=== PATIENT | female | born 1940 | race Caucasian/White ===

== ENCOUNTER → 2017-05-18 13:46 | Outpatient (CLI) | payer MEDICARE, OTHER ==
[~2017-05-18 13:46] MED LIST: BAYER CHEWABLE81 MG PO; BETAPACE 80 MG80 MG PO; CALTRATE 600 M600 M1; CATAPRES0.1 MG PO; COUMADIN1 MG; EFFIENT10 MG PO; HYZAAR 100-12.51 TAB PO; METOPROLOL TART50 MG PO; PLAVIX75 MG PO; PREDNISONE1 MG PO; PRILOSEC20 MG PO; VITAMIN D2000 UNIT
== END | disposition home or self-care (01) ==
LOC: D.MRI 13:46
DX: G45.9 Transient cerebral ischemic attack, unspecified (principal)

== ENCOUNTER 2017-06-14 09:57 | Outpatient (CLI) | payer MEDICARE, OTHER ==
[~2017-06-14] VITALS: Ht 180.3 cm; Wt 98.2 kg
--- NOTE | ~2017-06-14 | HEMODYNAMI ---
PATIENT:SHOBHA FONG MEDICAL RECORD: [id number] : 42 LOCATION:[facility] ADMISSION DATE: 06/14/17 Generatedon:06/14/201712:34 Patient name: SHOBHA FONG Patient #: [id number] SSN: DO B: 1940 Date of study: 06/14/2017 Page: Of Hemodynamic Procedure Report Patient Data Patient Demographics Procedure consent was obtained First Name: SHOBHA Gender: Female Last Name: HETAL : 1940 Middle Initial: R Age: 77 year(s) Patient #: [id number] Race: Unknown Additional ID: [id number] Contact details Address: [address] [place] [address] State: [place] City: [place] Zip code: [address] Past Medical History Allergies Allergen Reaction Date Comments Reported Penicillins 06/14/2017 Iodine 06/14/2017 Sulfa drugs 06/14/2017 Admission Admission Data Admission Date: 06/14/2017 Admission Time: 9:57 Height (in.): 71 BSA: 2.18 (m2) Height (cm.): 180.34 BMI: 30.13 (kg/m2) Weight (lbs.): 216 Weight (kg.): 97.98 Lab Results Lab Result Date: 06/14/2017 Lab Result Time: 0:00 Biochemistry Name Units Result Min Max CK-MB ng/ml 0.3 --(*---)-- 0 3.6 Creatinine mg/dl 0.9 --(-*--)-- 0.6 1.3 Creatinine l 38 --(*---)-- 21 215 Kinase Troponin l ng/ml 0.017 --(-*--)-- 0 0.06 CBC Name Units Result Min Max Hemoglobin g/dl 14.1 --(*---)-- 13.5 17.5 Procedure Procedure Types Cath Procedure Diagnostic Procedure [facility] w/Coronaries FFR/IVUS Intra-Coronary IVUS Initial PCI Procedure Coronary Stent Initial Miscellaneous Procedures Moderate Sedation up to 30 minutes Procedure Description Procedure Date Procedure Date: 06/14/2017 Procedure Start Time: 12:05 Procedure End Time: 12:33 Procedure Staff Name Function Navdeep Vazquez MD Performing Physician Cornell Estrada RT Scrub Bernabe Hickman RN Nurse Bobbi Corrales RT Monitor Procedure Data Cath Procedure Fluoroscopy Diagnostic fluoroscopy Total fluoroscopy Time: 4.6 time: 4.6 min min Diagnostic fluoroscopy Total fluoroscopy dose: dose: 1144 mGy 1144 mGy Contrast Material Contrast Material Type Amount (ml) Isovue 300 101 Entry Location Entry Primary Successful Side Size Upsize Upsize Entry Closure Flores ccessful Closure Location (Fr) 1 (Fr) 2 (Fr) Remarks Device Remarks Radial Right 6 Fr Mechanical artery Short Compression Estimated blood loss: 10 ml Diagnostic catheters Device Type Used For End Catheter Placement Diagnostic Terumo 5Fr LV Angiography [place] 110cm catheter Diagnostic Terumo 5Fr Left Coronary [place] 110cm catheter Angiography Diagnostic Terumo 5Fr Right Coronary [place] 110cm catheter Angiography Procedure Complications No complications Procedure Medications Medication Administration Route Dosage Oxygen NC 2 l/min Heparin Flush Bag added to field 2 bags (1000units/500ml NS) 0.9% NaCl I.V. 100 ml/hr Radial Cocktail added to field 1 syringe (Verapomil 2mg/Nitro 400mcg/Heparin 1500units) Fentanyl I.V. 50 mcg Versed I.V. 1 mg Fentanyl I.V. 50 mcg Versed I.V. 1 mg Radial Cocktail I.A. 1 syringe (Verapomil 2mg/Nitro 400mcg/Heparin 1500units) Heparin Bolus I.V. 4000 units Integrilin (Bolus I.V. 9 ml 2mg/ml) Integrilin (Bolus wasted 1 ml 2mg/ml) Plavix P.O. 600 mg Hemodynamics Rest BSA: 2.18 (m2) HGB: 14.1 (g/dl) O2 Consumption: Estimated: 185.85 (ml/min) O2 Co nsumption indexed: Estimated:85.25 (ml/min/m) Heart Rate: 55 (bpm) Snapshots Pre Cath Intra NCS Post Cath Vital Signs Time Heart Resp SPO2 NIBP (mmHg) Rhythm Pain Sedation Rate (ipm) (%) Status Level (bpm) 11:52:05 57 28 97 185/83(139) NSR 0 (11) 10(A) , No pain 11:56:37 55 17 97 186/77(151) NSR 0 (11) 10(A) , No pain 12:01:02 56 17 95 173/77(138) NSR 0 (11) 10(A) , No pain 12:05:28 54 18 94 153/76(127) NSR 0 (11) 9(A) , No pain 12:09:44 56 19 91 123/61(95) NSR 0 (11) 9(A) , No pain 12:14:00 57 19 93 135/67(107) NSR 0 (11) 9(A) , No pain 12:18:20 57 18 96 139/71(114) NSR 0 (11) 9(A) , No pain 12:22:42 58 18 97 142/65(121) NSR 0 (11) 9(A) , No pain 12:27:05 56 17 98 145/73(126) NSR 0 (11) 9(A) , No pain 12:31:27 57 18 98 163/75(129) NSR 0 (11) 9(A) , No pain Medications Time Medication Route Dose Verified Delivered Reason Note s Effectiveness by by 11:53:50 Oxygen NC 2 l/min Bernabe Kidd Per physician Vick Hickman RN RN 11:54:47 Heparin Flush added 2 bags Bernabe Kidd used for Bag to Vick Hickman hand tire trimmer (1000units/500ml field RN NS) 11:54:57 0.9% NaCl I.V. 100 Bernabe Kidd Per physician ml/hr Vick Hickman RN RN 11:55:11 Radial Cocktail added 1 Bernabe Bernabe used for (Verapomil to syringe Vick Hickman hand tire trimmer 2mg/Nitro field RN 400mcg/Heparin 1500units) 12:01:26 Fentanyl I.V. 50 mcg Bernabe Bernabe for sedation Vick Hickman RN RN 12:01:33 Versed I.V. 1 mg Bernabe Bernabe for sedation Vick Hickman RN RN 12:05:54 Fentanyl I.V. 50 mcg Bernabe Bernabe for sedation Vick Hickman RN RN 12:06:02 Versed I.V. 1 mg Bernabe Bernabe for sedation Vick Hickman RN RN 12:07:35 Radial Cocktail I.A. 1 Bernabe Sethi for (Verapomil syringe Vick Vazquez MD vasodilation 2mg/Nitro RN 400mcg/Heparin 1500units) 12:19:43 Heparin Bolus I.V. 4000 Bernabe Kidd for units Vick Hickman RN anticoagulation RN 12:19:53 Integrilin I.V. 9 ml Bernabe Kidd for (Bolus 2mg/ml) Vick Hickman RN antiplatelet RN therapy 12:20:02 Integrilin wasted 1 ml Bernabe Kidd for (Bolus 2mg/ml) Vick Hickman RN antiplatelet RN therapy 12:33:34 Plavix P.O. 600 mg Bernabe Kidd for Vick Hickman RN antiplatelet RN therapy Procedure Log Time Note 11:30:40 Bernabe Hickman RN sent for patient. Start room use. 11:34:16 Informed consent obtained and on chart 11:34:36 Diagnostic Cath status Elective 11:34:41 Time tracking: Regular hours 11:34:44 Plan of Care:Hemodynamics will remain stable., Cardiac rhythm will remain stable., Comfort level will be maintained., Respiratory function will remain adequate., Patient/ family verbilizes understanding of procedure., Procedure tolerated without complication., Recovers from procedure without complications.. 11:40:23 Lab Result : Creatinine 0.9 mg/dl 11:40:23 Lab Result : Troponin l 0.017 ng/ml 11:40:23 Lab Result : Hemoglobin 14.1 g/dl 11:40:23 Lab Result : CK-MB 0.3 ng/ml 11:40:23 Lab Result : Creatinine Kinase 38 l 11:40:37 Patient Height : 180.34 cm 11:40:46 Patient Weight : 97.98 kg 11:42:17 Patient received from Pre/Post Procedure Room to CCL 2 Alert and oriented. Tansferred to table in Supine position. 11:42:18 Warm blankets applied, and cesario hugger turned on for patient comfort. 11:42:18 Correct patient and procedure confirmed by team. 11:42:18 ECG and BP/O2 sat monitors applied to patient. 11:42:20 Full Disclosure recording started 11:49:37 Vital chart was started 11:53:50 Oxygen 2 l/min NC was administered by Bernabe Hickman RN; Per physician; 11:54:47 Heparin Flush Bag (1000units/500ml NS) 2 bags added to field was administered by Bernabe Hickman RN; used for procedure; 11:54:57 0.9% NaCl 100 ml/hr I.V. was administered by Bernabe Hickman RN; Per physician; 11:55:11 Radial Cocktail (Verapomil 2mg/Nitro 400mcg/Heparin 1500units) 1 syringe added to field was administered by Bernabe Hickman RN; used for procedure; 11:57:13 Baseline sample Acquired. 11:57:15 Pre-procedure instructions explained to patient. 11:57:54 Rhythm: sinus bradycardia 11:58:05 H&P Date Dictated: 06/09/2017 Within 30 days and on chart., H&P Addendum completed by physician on day of procedure. (MUST COMPLETE FOR ALL OUTPATIENTS). 11:58:07 Pre-op teaching completed and patient verbalized understanding. 11:58:08 Family in waiting room. 11:58:11 Patient NPO since Midnight. 11:58:22 Patient allergic to Penicillins 11:58:27 Patient allergic to Iodine 11:58:32 Patient allergic to Sulfa drugs 11:58:35 Is the patient allergic to Iodine/contrast media? Yes. 11:58:35 Was the patient premedicated? Yes 11:58:37 Is patient on blood thinner?Yes 11:58:50 ACC The patient was administered the following blood thiners within the last 24 hours: None 11:58:53 Patient diabetic? No. 11:58:56 Previous problem with sedation/anesthesia? No ? 11:58:57 Snore? Yes 11:58:58 Sleep apnea? No 11:58:59 Deviated septum? No 11:59:00 Opens mouth fully? Yes 11:59:00 Sticks out tongue? Yes 11:59:02 Airway obstruction? No ? 11:59:08 Dentures? No ? 12:00:29 Pre procedure: right dorsailis pedis pulse 2+ Normal; easily identifiable; not easily obliterated 12:00:31 Modified Favian's test Ulnar < 7 seconds 12:00:33 Patient pain scale 0/10 ?. 12:00:38 IV patent on arrival in left hand with 0.9% NaCl at [facility]. 12:00:41 Lab results completed and on chart. 12:00:44 Right Radial & Right Groin area was prepped with chlora-prep and draped in sterile fashion 12:00:46 Alarms reviewed by R. N. 12:00:47 Sharps counted by scrub and verified by R.N. 12:00:50 Use device set Radial Dx 12:00:51 Acist Syringe opened to sterile field. 12:00:51 Medline Cath Pack opened to sterile field. 12:00:52 Bag Decanter opened to sterile field. 12:00:52 Terumo 6Fr Slender Glidesheath opened to sterile field. 12:00:52 St Eric 260cm J .035 wire opened to sterile field. 12:00:53 Acist Hand Control opened to sterile field. 12:00:53 Acist Manifold opened to sterile field. 12:00:53 Tegaderm 4 x 4 opened to sterile field. 12:00:54 MBrace Wrist Support opened to sterile field. 12:01:01 Final Timeout: patient, procedure, and site verified with staff and physician. All members of the team are in agreement. 12:01:04 Right Radial site verified by team. 12:01:06 Physical assessment completed. ASA score P 2 - A patient with mild systemic disease as per Navdeep Vazquez MD. 12:01:09 Sedation plan: IV Moderate Sedation Versed, Fentanyl 12::26 Fentanyl 50 mcg I.V. was administered by Bernabe Hickman RN; for sedation; 12:01:33 Versed 1 mg I.V. was administered by Bernabe Hickman RN; for sedation; 12:05:10 Procedure started. 12:05:17 Zero performed for pressure channel P1 12:05:26 Local anesthetic to right radial artery with Lidocaine 2% by Navdeep Vazquez MD.INITIAL ACCESS ONLY 12:05:54 Fentanyl 50 mcg I.V. was administered by Bernabe Hickman RN; for sedation; 12:06:02 Versed 1 mg I.V. was administered by Bernabe Hickman RN; for sedation; 12:06:26 A 6 Fr Short sheath was inserted into the Right Radial artery 12:07:35 Radial Cocktail (Verapomil 2mg/Nitro 400mcg/Heparin 1500units) 1 syringe I.A. was administered by Navdeep Vazquez MD; for vasodilation; 12:07:38 A Diagnostic Terumo 5Fr [place] 110cm catheter was advanced over the wire and used for LV Angiography. 12:08:20 LV gram done using OSBORNE 12:08:24 EF : 55 % 12:08:26 Injector settings: Ml/sec: 5, Volume: 15, 12:08:34 A Diagnostic Terumo 5Fr [place] 110cm catheter was advanced over the wire and used for Left Coronary Angiography. 12:10:14 A Diagnostic Terumo 5Fr [place] 110cm catheter was advanced over the wire and used for Right Coronary Angiography. 12:11:34 Catheter removed. 12:11:46 [place] IVUS Catheter opened to sterile field. 12:11:47 [employer]ent[employer] Technologies BasixCompak Inflation Kit opened to sterile field. 12:11:47 Pimentel Whisper J 300cm 0.014 guide wire opened to sterile field. 12:12:30 GUIDE Terumo 6Fr [place] 4.0 guide catheter opened to sterile field. 12:13:08 6 Fr [place] 4.0 guide catheter was inserted over the wire 12:13:17 Whisper wire advanced. 12:14:45 IVUS catheter advanced over wire. 12:15:17 IVUS pass to RCA lesion performed. 12:18:54 IVUS catheter removed over wire. 12:19:43 Heparin Bolus 4000 units I.V. was administered by Bernabe Hickman RN; for anticoagulation; 12:19:53 Integrilin (Bolus 2mg/ml) 9 ml I.V. was administered by Bernabe Hickman RN; for antiplatelet therapy; 12:20:02 Integrilin (Bolus 2mg/ml) 1 ml wasted was administered by Bernabe Hickman RN; for antiplatelet therapy; 12:20:48 Inflation Number: 1 A Biofreedom 4.0 X 8 stent (No Cost Implant) was prepped and advanced across the Prox RCA. The stent was deployed at 15 DMITRIY for 0:11 (min:sec). 12:21:04 Stent catheter was removed intact over wire. 12:21:04 Wire removed. 12:21:05 Guide catheter removed. 12:21:18 Sheath removed intact; hemostasis achieved with Mechanical Compression to the Right Radial artery. 12:21:19 Procedure ended.(Physican Out) 12:21:37 Terumo TR Band Standard opened to sterile field. 12:21:43 Fluoroscopy time 04.60 minutes. 12:21:48 Flurop Dose total: 1144 12::48 Fluoroscopy dose: 1144 mGy 12::56 Contrast amount:Isovue 300 101ml. 12::57 Sharps counted by scrub and verified by R.N. 12:21:59 TR band inflated with 12cc of air. 12:22:00 Insertion/operative site no bleeding no hematoma. 12:22:05 Post right radial artery:stable, clean and dry 12:22:06 Post Procedure Pulses reassessed and unchanged 12:22:08 Post-procedure physical assessment completed. ASA score P 2 - A patient with mild systemic disease as per Navdeep Vazquez MD. 12:22:10 Post procedure rhythm: unchanged. 12:22:12 Estimated blood loss: 10 ml 12:22:13 Post procedure instruction explained to patient.Patient verbalizes understanding. 12:22:13 Patient needs reinforcement of post procedure teaching. 12:22:28 Procedure type changed to Cath procedure, Diagnostic procedure, LHC, LHC w/Coronaries, FFR/IVUS, Intra-Coronary IVUS Initial, PCI procedure, Coronary Stent Initial, Miscellaneous Procedures, Moderate Sedation up to 30 minutes 12::34 Procedure Complication : No complications 12:22:36 See physician's report for complete and final results. 12:25:17 Procedure and supply charges have been captured, reviewed, submitted and are correct. 12:33:34 Plavix 600 mg P.O. was administered by Bernabe Hickman RN; for antiplatelet therapy; 12:33:40 Vital chart was stopped 12:33:43 Report given to Pre/Post Procedure Room. 12:33:46 Patient transfered to Pre/Post Procedure Room with Stretcher. 12:33:49 Procedure ended. 12:33:49 Full Disclosure recording stopped 12:33:53 End room use (Document Last) Intervention Summary Intervention Notes Time ActionType Lesion and Equipment Action# Pressure Duration Attributes Used 12:20:[address] stent Prox RCA Biofreedom 1 15 00:11 4.0 X 8 stent (No Cost Implant) Device Usage Item Name Manufacture Quantity Catalog Hospital Part Current Minimal Lot# / Number Charge Number Stock Stock Serial# Code Acist Acist 1 64714 [id number] 458272 905643 20 [employer] Medline Cardinal 1 [id number] 696362 88696 132591 5 Cath Pack Health Bag Microtek 1 2002S 522909 67778 240994 5 S[employer] Terumo 6Fr Terumo 1 [id number] 821536 447931 778734 [address] [facility] [address] Eric 1 015379 381390 778902 499007 30 260cm J .035 wire Acist Hand Acist 1 30919 429505 687495 400592 5 Control Medical Systems Inc Acist Acist 1 44385 841771 936646 836487 5 Manifold Medical Systems Inc Tegaderm 4 3M 1 1626W 863800 955675 443152 5 x 4 MBrace Advanced 1 140-0250-00 082735 88956 930661 5 Wrist Vascular Support Dynamics Diagnostic Terumo 1 54-7795 367571 128532 318068 5 Terumo 5Fr [place] 110cm catheter [place] 1 [id number] 062119 845069 374497 8 [place] IVUS Catheter Merit Merit 1 [id number] 079167 313767 225665 15 Basix[employer] [facility] Medical Inflation Kit Pimentel Pimentel 1 [id number] 395273 465473 047267 5 Whisper J Vascular 300cm 0.014 guide wire GUIDE Terumo 1 26-2073 180367 566029 848582 1 Terumo 6Fr [place] 4.0 guide catheter Biofreedom Biosensors 1 [facility]2-4909 423513 977341 5 [id number] 4.0 X 8 Europe SA stent (No Cost Implant) Terumo TR Terumo 1 [id number] 115151 309247 159548 40 Band Standard Signature Audit [place] Stage Time Signature Unsigned Intra-Procedure 06/14/2017 Bobbi 12:34:03 PM Counts RT(R) Signatures Monitor : Bobbi Signature : Counts RT Date : Time : [address] [place] [address]
--- NOTE | ~2017-06-14 | OP ---
PATIENT NAME: SHOBHA FONG MEDICAL RECORD: [id number] :42 LOCATION:D.CAT ADMISSION DATE: SURGEON: DESIRE LOUIS MD OPERATION DATE: 06/14/17 PROCEDURES: 1. Percutaneous transluminal coronary angioplasty stent right coronary artery. 2. Left heart catheterization. 3. Selective coronary angiography. 4. Intravascular ultrasound. 5. Left ventriculogram. INDICATION: 1. Angina. 2. Coronary artery disease. PROCEDURE IN DETAIL: After informed consent was obtained and after detailed explanation of risks, benefits, as well as alternative therapies, the patient elected to proceed with angiogram and angioplasty. The right radial area was prepped and draped in a normal sterile fashion. The right radial artery was cannulated via modified Seldinger technique with placement of 6-Wolof sheath. All catheters exchanged through this sheath. FINDINGS: Left ventriculogram was performed in standard 30 degree OSBORNE view, reveals good cardiac wall motion throughout all segments. Overall ejection fraction estimated at 60%. SELECTIVE CORONARY ANGIOGRAPHY: 1. Left main is with no significant angiographic disease. 2. Left anterior descending has mild irregularities but no flow-limiting stenosis. 3. The left circumflex has mild irregularities but no flow-limiting stenosis. 4. The right coronary artery has 75% stenosis at the ostium confirmed by intravascular ultrasound. Previously placed stent in the distal right coronary artery is widely patent. There is no disease elsewise at the right coronary artery or its branches. This is a 6 millimeter lesion in a 4.0 millimeter vessel with MARCOS 3 flow before and after the intervention. PTCA STENT OF THE RIGHT CORONARY ARTERY: The stent used was a 4.0 X 8 millimeter BioFreedom taken to 15 atmospheres. The result was 0% residual stenosis. OVERALL IMPRESSION: Successful percutaneous transluminal coronary angioplasty stent of the right coronary artery going from 75% initial stenosis to 0% residual stenosis. DESIRE LOUIS MD CC: [id number] DICTATION DATE: 06/14/17 1200 BAR STAFF: DM 06/15/17 0921 DEP CLI 06/14/17 [facility] [address] [place] [address]
[2017-06-14] MEDS ORDERED: ZOLOFT25 MG PO (10:30)
[2017-06-14] MEDS ORDERED: CATAPRES0.1 MG PO (10:30)
[2017-06-14 10:32] VITALS: BP 158/59; Ht 180.3 cm; Wt 98.2 kg
[2017-06-14 10:53] LABS: BASOPHILS 0 % (0-2); EOSINOPHILS 0 % (0-7); HEMATOCRIT 39.9 % (36.0-48.0); HEMOGLOBIN 14.1 g/dL (12-16); IMMATURE GRANULOCYTES 0.4 % (0-5); LYMPHOCYTES 8.9 % (15-50); MCH 32.6 pg (26.0-34.0); MCHC 35.3 g/dL (31.0-37.0); MCV 92.1 fL (80.0-100.0); MEAN PLATELET VOLUME 10.3 fL (7.4-10.4); MONOCYTES 1.5 % (2-11); NEUTROPHILS 89.2 % (40-80); PLATELET COUNT 172 10x3/uL (130-400); RBC 4.33 10x6/uL (4.00-5.40); RDW 12.5 % (11.5-14.5); WBC 5.4 10x3/uL (4.8-10.8)
[2017-06-14 11:04] LABS: INR 1.06 (0.85-1.17); PROTIME 13.6 SECONDS (11.6-15.0)
[2017-06-14 11:09] LABS: ANION GAP 16.8 mmol/L (8-16); CALCIUM 9.6 mg/dL (8.5-10.1); CARBON DIOXIDE 22.5 mmol/L (21.0-32.0); CREATININE - SERUM 0.9 mg/dL (0.6-1.3); POTASSIUM - SERUM 4.3 mmol/L (3.5-5.1)
[2017-06-14 11:22] LABS: CKMB 0.3 U/L (0.0-3.6); CREATINE KINASE 38 UL (21-215)
[2017-06-14 11:26] LABS: TROPONIN-I < 0.017 ng/mL (0.000-0.060)
--- NOTE | 2017-06-14 12:50 | NUR ---
1245 RECEIVED PT FROM HOSPITALIST MEDICAL DIRECTOR. PT IS DROWSY, DENIES ANY C/O. TR BAND CDI TO RIGHT WRIST WITH NO BLEEDING OR HEMATOMA NOTED. WRIST IMMOBILIZER IN PLACE. RR EVEN AND UNLABORED ON O2 AT 2LPM VIA NC. CALL LIGHT IN REACH.
--- NOTE | 2017-06-14 12:58 | NUR ---
1255 PT DENIES ANY C/O. TR BAND IS CDI, AREA IS FREE FROM BLEEDING AND HEMATOMA. CAP REFILL TO FINGERS IS BRISK, FINGERS WARM AND PT DENIES ANY NV DEFICIT. VSS, SINUS BRADYCARDIA PER MONITOR. FAMILY AT BEDSIDE, CALL LIGHT IN REACH.
[2017-06-14] MEDS ORDERED: PLAVIX75 MG PO (13:02)
[2017-06-14] MEDS ORDERED: BAYER CHEWABLE81 MG PO (13:03)
--- NOTE | 2017-06-14 13:23 | NUR ---
1320 PT DENIES ANY C/O TR BAND CDI, FINGERS WARM, CAP REFILL IS BRISK RR IS EVEN AND UNLABORED.
--- NOTE | 2017-06-14 13:48 | NUR ---
1345 PT DENIES ANY C/O. RR IS EVEN AND UNLABORED. TR BAND CDI. FINGERS WARM, CAP REFILL IS BRISK. FAMILY AT BEDSIDE. CALL LIGHT IN REACH.
--- NOTE | 2017-06-14 14:14 | NUR ---
1414 POST PROCEDURE EKG DONE. TR BAND CDI. PT DENIES ANY C/O. FAMILY AT BEDSIDE. CALL LIGHT IN REACH.
--- NOTE | 2017-06-14 15:05 | NUR ---
1500 POST PROCEDURE LAB DRAW COMPLETED. CATH SITE FREE FROM BLEEDING OR HEMATOMA. SON AT BEDSIDE. PT DENIES ANY C/O AT THIS TIME.
--- NOTE | 2017-06-14 15:37 | NUR ---
1530 PT HAS AMBULATED TO THE BATHROOM AND VOIDED QS. TR BAND DEFLATION HAS BEGUN, 3 CC OF AIR REMOVED FROM BAND WTIH NO BLEEDING OR HEMATOMA NOTED.
--- NOTE | 2017-06-14 16:41 | NUR ---
1615 ALL AIR OUT OF TR BAND WITH NO BLEEDING OR HEMATOMA NOTED. IV DC'D WITH CATH INTACT. PT DRESSING FOR DC TO HOME. 1630 2X2 AND TEGADERM DRESSING TO CATH SITE WITH NO BLEEDING OR HEMATOMA NOTED. DC INSTRUCTIONS REVIEWED WITH PT AND FAMILY. [facility] CALLED TO [facility] PER PT REQUEST. [facility] BYRON STATES THEY HAVE NO PLAVIX TABLETS, AND IS ON BACKORDER, BUT WILL TRY TO HAVE PLAVIX SENT FROM OTHER PHARMACY TO FILL PRESCRIPTION. INSTRUCTED PT AND FAMILY TO CALL DR LOUIS'S OFFICE IN AM IF PHARMACY IS UNABLE TO FILL PRESCRIPTION AND THEY VERBALIZE UNDERSTANDING. PT ESCORTED TO PRIVATE AUTO VIA WC BY NURSE WTIH SON DRIVING HER HOME.
== END 2017-06-14 16:30 | disposition home or self-care (01) ==
LOC: D.CATH 09:57
PROVIDERS: Internal Medicine Interventional Cardiology
DX: I25.119 Atherosclerotic heart disease of native coronary artery with unspecified angina pectoris (principal); Z00.6 Encounter for examination for normal comparison and control in clinical research program; Z01.812 Encounter for preprocedural laboratory examination
CPT/HCPCS: 93458; 92978; C9600

== ENCOUNTER → 2017-08-11 07:38 | Outpatient (CLI) | payer MEDICARE, OTHER ==
[2017-06-14 10:32] VITALS: BMI 30.2
[~2017-08-11 07:38] MED LIST changes: +ZOLOFT25 MG PO
== END | disposition home or self-care (01) ==
LOC: D.MRI 07:38
DX: M54.5 Low back pain (principal)

== ENCOUNTER → 2019-04-04 10:44 | Outpatient (CLI) | payer MEDICARE, OTHER ==
[2017-06-14 10:32] VITALS: BMI 30.2
--- NOTE | 2019-04-07 16:42 | ST ---
PATIENT:SHOBHA FONG MEDICAL RECORD: [id number] SEX: F LOCATION:[facility] ORDER #: ADMISSION DATE: 04/04/19 AGE OF PATIENT: 78 REFERRING PHYSICIAN: INTERPRETING PHYSICIAN: DESIRE LOUIS MD DATE OF SERVICE: 04/04/2019 PROCEDURE: Nuclear stress test. INDICATIONS: Coronary artery disease, chest pain, shortness of breath, hypertension, hyperlipidemia. She was exercised on standard Lexiscan protocol with 25 mCi of sestamibi injected at peak stress, 9 mCi used previously for rest images. FINDINGS: Gated SPECT reveals preserved ejection fraction at 66% with good wall motion and thickening and brightening throughout all segments. SPECT imaging Cardiolite was used as myocardial fusion agent. There is homogeneous uptake throughout all segments at rest and stress with no evidence of inducible ischemia or previous infarction. OVERALL IMPRESSION: 1. This is a normal nuclear stress test with no evidence of inducible ischemia or previous infarction. 2. Gated SPECT reveals a preserved ejection fraction at 66%. In this patient with ongoing symptomatology, the current scan does not suggest the presence of hemodynamically significant coronary artery disease. Evaluate noncardiac etiology of chest pain. TRANSINT:[id number] Voice Confirmation ID: [id number] DOCUMENT ID: [id number] DESIRE LOUIS MD at 1642 CC: JENY FAIR [id number] DICTATION DATE: 04/05/19 1532 BRUSHER MACHINE: 04/06/19 0413 DEP CLI 04/04/19 [place] [id number] [place] [address]
== END | disposition home or self-care (01) ==
LOC: D.HCCARDIO 10:44
PROVIDERS: ATTEND Internal Medicine Interventional Cardiology
DX: I25.10 Atherosclerotic heart disease of native coronary artery without angina pectoris (principal)

== ENCOUNTER 2019-05-16 09:43 | Outpatient (CLI) | payer MEDICARE, OTHER ==
[~2019-05-16] VITALS: Ht 180.3 cm; Wt 97.7 kg
--- NOTE | ~2019-05-16 | HEMODYNAMI ---
PATIENT:SHOBHA FONG MEDICAL RECORD: [id number] : 42 LOCATION:D.CAT ADMISSION DATE: 05/16/19 Generatedon:05/16/201912:14 Patient name: SHOBHA FONG Patient #: [id number] SSN: DO B: 1940 Date of study: 05/16/2019 Page: Of Hemodynamic Procedure Report Patient Data Patient Demographics Procedure consent was obtained First Name: SHOBHA Gender: Female Last Name: HETAL : 1940 [facility] Initial: R Age: 79 year(s) Patient #: [id number] Race: Unknown Additional ID: [id number] Contact details [address]: [address] [place], [place] [id number] State: [place] City: [place] Zip code: [address] Past Medical History Allergies Allergen Reaction Date Comments Reported Penicillins 06/14/2017 Iodine 06/14/2017 Sulfa drugs 06/14/2017 Admission Admission Data Admission Date: 05/16/2019 Admission Time: 9:43 Arrival Date: 05/16/2019 Arrival Time: 0:00 Admit Source: Other Insurance Payor: Medicare Height (in.): 70.87 BSA: 2.18 (m2) Height (cm.): 180 BMI: 30.25 (kg/m2) Weight (lbs.): 216.05 Weight (kg.): 98 Procedure Procedure Types Cath Procedure Diagnostic Procedure Cardioversion External Procedure Description Procedure Date Procedure Date: 05/16/2019 Procedure Start Time: 12:06 Procedure End Time: 12:13 Procedure Staff Name Function Navdeep Vazquez MD Performing Physician Sofía Morris RN Nurse Nelson Francis CHOCOLATE PRODUCTION MACHINE OPERATOR Additional personnel Elmo Guaman RT Monitor Hemodynamics Rest BSA: 2.18 (m2) O2 Consumption: Estimated: 211.58 (ml/min) O2 Consumption indexed : Estimated:97.06 (ml/min/m) Heart Rate: 88 (bpm) Snapshots Pre Cath Intra NCS Post Cath Vital Signs Time Heart Resp SPO2 etCO2 NIBP (mmHg) Rhythm Pain Sedation Rate (ipm) (%) (mmHg) Status Level (bpm) 12:01:01 71 16 98 0 155/84(124) NSR 0 (11) 10(A) , No pain 12:05:19 76 14 100 30.6 165/96(142) NSR 0 (11) 10(A) , No pain 12:09:52 51 16 100 14.2 119/58(71) NSR 0 (11) 10(A) , No pain Procedure Log Time Note 11:00:43 Diagnostic Cath Status : Elective 11:01:35 Felicia Vera RT(R) sent for patient. Start room use. 11:01:36 Time tracking: Regular hours (M-F 7:00 - 5:00) 11:01:40 Plan of Care:Hemodynamics will remain stable., Cardiac rhythm will remain stable., Comfort level will be maintained., Respiratory function will remain adequate., Patient/ family verbilizes understanding of procedure., Procedure tolerated without complication., Recovers from procedure without complications.. 11:25:25 Admit Source: Other 11:25:31 Patient Weight : 216.05 lbs 11:25:36 Patient Height : 70.87 inches 11:26:25 Insurance Payor : Medicare 11:26:30 Arrival Date: 05/16/2019 12:00:00 AM 11:59:45 Vital chart was started 11:59:59 Patient received from Pre/Post Procedure Room to CCL 2 Alert and oriented. Tansferred to table in Supine position. 12:00:04 Warm blankets applied, and cesario hugger turned on for patient comfort. 12:00:04 Correct patient and procedure confirmed by team. 12:00:07 Signed procedure consent form obtained from patient. 12:00:09 ECG and BP/O2 sat monitors applied to patient. 12:03:46 Baseline sample Acquired. 12:04:00 Rhythm: atrial fibrillation 12:04:05 Full Disclosure recording started 12:04:22 Physician arrived 12:04:23 --------ALL STOP TIME OUT------ 12:04:24 Final Timeout: patient, procedure, and site verified with staff and physician. All members of the team are in agreement. 12:04:35 Bilateral chest site verified by team. 12:04:43 Fire Safety Assessment: C--Open oxygen or nitrous oxide is being used. 12:04:47 Physical assessment completed. ASA score P 2 - A patient with mild systemic disease as per Navdeep Vazquez MD. 12:04:53 Sedation plan: IV Moderate Sedation Medication:Propofol 12:05:10 Navdeep Vazquez MD present and monitoring patient for TIVA. 12:06:04 Nelson Francis CRNA present and monitoring patient for TIVA. 12:06:06 Procedure started. 12:06:08 Quick combo pads placed on patients chest and back. 12:06:19 Defibrillator synced and charged to 275 Joules. 12:06:24 Shock delivered. 12:06:47 Patient cardioverted to sinus bradycardia. 12:07:54 Procedure ended.(Physican Out) 12:09:20 H&P Date Dictated: 05/11/2019 Within 30 days and on chart., H&P Addendum completed by physician on day of procedure. (MUST COMPLETE FOR ALL OUTPATIENTS). 12:10:58 Post-procedure physical assessment completed. ASA score P 2 - A patient with mild systemic disease as per Navdeep Vazquez MD. 12:11:52 Quick Combo opened to sterile field. 12:12:48 Vital chart was stopped 12:12:49 See physician's report for complete and final results. 12:12:51 Report given to Pre/Post Procedure Room. 12:12:57 Patient transfered to Pre/Post Procedure Room with Stretcher. 12:13:00 Procedure ended. 12:13:00 Full Disclosure recording stopped 12:13:03 End room use (Document Last) Device Usage Item Manufacture Quantity Catalog Hospital Part Current Minimal Lot# / Name Number Charge Number [facility] Code XOXO Kitchen 1 [id number] Combo Signature Audit [place] Stage Time Signature Unsigned Intra-Procedure 05/16/2019 Elmo Guaman 12:14:02 PM RT(R) (CV) Signatures Monitor : Elmo Guaman RT Signature : Date : Time : [place] [id number] [place] [address]
[2019-05-16] MEDS ORDERED: FUROSEMIDE20 MG PO (10:19)
[2019-05-16 10:38] VITALS: BP 161/81; Ht 180.3 cm; Wt 97.7 kg
[2019-05-16] MEDS ORDERED: LANOXIN125 MCG PO (10:44)
--- NOTE | 2019-05-16 10:44 | NUR ---
PT WITH AT-RISK SUICIDE RISK SCREENING, SAFETY MEASURES IMPLEMENTED PER PROTOCOL. PT PLACED IN DIRECT OBSERVATION OF NURSE, BEACH LIFEGUARD AND YARN INSPECTOR NOTIFIED.
[2019-05-16 10:49] LABS: BASOPHILS 0 % (0-2); EOSINOPHILS 1.8 % (0-7); HEMATOCRIT 40.2 % (36.0-48.0); HEMOGLOBIN 14.4 g/dL (12-16); LYMPHOCYTES 22.9 % (15-50); MCHC 35.8 g/dL (31.0-37.0); MEAN PLATELET VOLUME 9.8 fL (7.4-10.4); NEUTROPHILS 68.3 % (40-80); RBC 4.37 10x6/uL (4.00-5.40); RDW 13.5 % (11.5-14.5); WBC 3.3 10x3/uL (4.8-10.8)
[2019-05-16 10:53] LABS: PLATELET COUNT 210 10x3/uL (130-400)
[2019-05-16 10:56] LABS: ANION GAP 13.4 mmol/L (8-16); CALCIUM 10.1 mg/dL (8.5-10.1); CARBON DIOXIDE 27.2 mmol/L (21.0-32.0); INR 1.97 (0.85-1.17); POTASSIUM - SERUM 3.6 mmol/L (3.5-5.1); PROTIME 21.8 SECONDS (11.6-15.0)
--- NOTE | 2019-05-16 11:31 | NUR ---
PT NURSE PRESENT IN PT'S ROOM UPON ARRIVAL FOR SUICIDE ASSESSMENT. DR. GREENFIELD NOTIFIED AND REVIEWED PT'S BEHAVIOR AND ASSESSMENT RESULTS. PT IS A LOW RISK PER DR. GREENFIELD. DR. GREENFIELD STATED TO GIVE RESOURCES TO PT AT THIS TIME OF DISCHARGE. NO FURTHER ORDERS AT THIS TIME. RESOURCES REVIEWED WITH PT AND SHE VERBALIZED UNDERSTANDING.
--- NOTE | 2019-05-16 12:15 | NUR ---
RECIEVED TO ROOM VIA STRETCHER FROM METAL MOLDER. PATIENT ALERT AND ORIENTD ON ARRIVAL. CONNECTED TO MONITOR FOR OBSERVATION WITH HR SB 49 CHEST PAIN IS DENIED
--- NOTE | 2019-05-16 12:36 | NUR ---
PATIENT REMAINS IN SB WITH CHEST PAIN DENIED. ALERT AND TALKING TO FAMILY AND FRIENDS
--- NOTE | 2019-05-16 13:00 | NUR ---
REPOSITIONED TO SITTING WITH HOB UP 30 SANDWICH AND SODA TO BEDSIDE
--- NOTE | 2019-05-16 13:24 | NUR ---
VERBAL AND WRITTEN DISCHARGE GONE OVER WITH PATIENT. PIV REMOVED WITH DRESSING APPLIED. PATIENT REAMINS IN SB RATE OF 59 CHEST PAIN IS DENIED. PATIENT UP TO GET DRESSED FOR DISCHARGE HOME
--- NOTE | 2019-05-16 13:25 | NUR ---
LEFT VIA WC TO PARKING FOR PRIVATE TRANSPORTATION HOME NO DISTRESS
--- NOTE | 2019-05-17 11:19 | OP ---
PATIENT NAME: SHOBHA FONG MEDICAL RECORD: [id number] :42 LOCATION:D.CAT ADMISSION DATE: SURGEON: DESIRE LOUIS MD DATE OF OPERATION: 05/16/2019 PROCEDURE: DC cardioversion. INDICATION: Atrial fibrillation. PROCEDURE IN DETAIL: IV conscious sedation was per anesthesia. Continuous heart rate, O2 saturation, blood pressure monitoring all undertaken, all of which remained stable. She received 1 shock at 275 joules restoring sinus rhythm. OVERALL IMPRESSION: Successful DC cardioversion from atrial fibrillation to sinus rhythm. TRANSINT:[id number] Voice Confirmation ID: [id number] DOCUMENT ID: [id number] DESIRE LOUIS MD at 1119 CC: [id number] DICTATION DATE: 05/16/19 1207 ONCOLOGY NAVIGATOR: 05/16/19 1345 DEP CLI 05/16/[address] [address]
== END 2019-05-16 13:26 | disposition home or self-care (01) ==
LOC: D.CATH 09:43
PROVIDERS: ATTEND Internal Medicine Interventional Cardiology
DX: I48.91 Unspecified atrial fibrillation (principal); Z01.812 Encounter for preprocedural laboratory examination

== ENCOUNTER → 2019-06-22 09:20 | Outpatient (CLI) | payer MEDICARE, OTHER ==
[~2019-06-22 09:20] MED LIST changes: +FUROSEMIDE20 MG PO; +LANOXIN125 MCG PO
--- NOTE | 2019-06-23 14:45 | EC ---
PATIENT:SHOBHA FONG DATE OF SERVICE: 06/22/19 SEX: F MEDICAL RECORD: [id number] DATE OF : 42 [facility] AGE OF PATIENT: 79 ADMISSION DATE: 06/22/19 REFERRING PHYSICIAN: INTERPRETING PHYSICIAN: DESIRE VAZQUEZ MD ECHOCARDIOGRAM REPORT ECHO CHARGES 4 ECHO COMPLETE Date: 06/22/19 CLINICAL DIAGNOSIS: A-FIB/SOB/LOVE H/O CAD/HTN ECHOCARDIOGRAPHIC MEASUREMENTS (adult normal given) AC root (d.<3.7cm) 3.0 cm LV Septum d (<1.2 cm> 1.2 cm Valve Excursion 0.6 cm LV Septum (systole) 2.0 cm Left Atria (s.<4.0cm> 5.5 cm LVPW d(<1.2cm) 1.2 cm RV (d.<2.3cm) 2.8 cm LVPW (sytole) 1.8 cm LV diastole(<5.6CM) 6.3 cm MV E-F(>70mm/sec) cm LV systole 3.9 cm LVOT Diameter 2.1 cm MV exc.(>10mm) cm Est.ejection fraction (50-75%) % DOPPLER: LVIT cm/sec A 77.0 cm/sec E 100 cm/sec LA cm/sec RVSP 33.0 mmHg LVOT 113 cm/sec AOP1/2T m/s Asc. Ao 208 cm/sec RVOT 50.0 cm/sec RA cm/sec PA 83.0 cm/sec AV Gradient Peak 17.4 mmHg AV Mean 7.0 mmHg AV Area 1.9 cm MV Gradient Peak 4.2 mmHg MV Mean 0.83 mmHg MV Area cm COMMENTS: OP - HC Real Estate Sales Associate: 1 ALCIRA HEMPHILL Core Laying Machine Operator: 1 Dr. Vazquez TAPE# PACS Pericardial Effusion N DATE OF SERVICE: 06/22/2019 FINDINGS: 1. Left ventricular chamber size is mildly dilated. Left ventricular systolic function is preserved at 55%. 2. Left atrium is significantly dilated at 5.5 cm. Right atrium and right ventricular chamber sizes are as well moderate to severely dilated. 3. Valvular structures: Aortic valve demonstrates mild calcific aortic stenosis. Valve area calculates to 1.9 cm-squared with a gradient of 18 mm across the valve. The remaining valvular structures have normal structure and ECHOCARDIOGRAM REPORT [id number] HETAL,SHOBHA R motion. 4. Doppler interrogation elsewise reveals mild aortic insufficiency, mild mitral regurgitation, mild tricuspid regurgitation. No other valvular insufficiency or stenosis. Pulmonary systolic pressure is estimated at 33 mmHg. 5. No evidence of pericardial effusion or left ventricular thrombus. TRANSINT:[id number] Voice Confirmation ID: [id number] DOCUMENT ID: [id number] DESIRE VAZQUEZ MD at 1445 CC: [id number] DICTATION DATE: 06/23/19 1110 RETAIL SALESWORKER: 06/23/19 1323 DEP CLI 06/22/19 [facility] [address] [place] [address]
== END | disposition home or self-care (01) ==
LOC: D.HCCARDIO 09:20
PROVIDERS: ATTEND Internal Medicine Interventional Cardiology
DX: I48.91 Unspecified atrial fibrillation (principal); R06.00 Dyspnea, unspecified; I10 Essential (primary) hypertension; I25.10 Atherosclerotic heart disease of native coronary artery without angina pectoris

== ENCOUNTER → 2019-11-28 09:49 | Outpatient (CLI) | payer MEDICARE, OTHER ==
[~2019-11-28] VITALS: Ht 180.3 cm; Wt 99.1 kg
--- NOTE | ~2019-11-28 | HEMODYNAMI ---
PATIENT:SHOBHA FONG MEDICAL RECORD: [id number] : 42 [facility] AD[facility]ION DATE: 11/28/19 Generatedon:11/28/201912:26 Patient name: SHOBHA FONG Patient #: [id number] SSN: [id number] : 1940 Date of study: 11/28/2019 Page: Of Hemodynamic Procedure Report Patient Data Patient Demographics Procedure consent was obtained First Name: SHOBHA Gender: Female Last Name: HETAL : 1940 [facility] Initial: R Age: 79 year(s) Patient #: [id number] Race: SSN: [id number] Additional ID: [id number] Contact details Address: [address] [place], [place] [address] State: [place] City: [place] Zip code: [address] Past Medical History Allergies Allergen Reaction Date Comments Reported Penicillins 06/14/2017 Iodine 06/14/2017 Sulfa drugs 06/14/2017 Other allergy 11/28/2019 Iodine, Pcn, Sulfa Admission Admission Data Admission Date: 11/28/2019 Admission Time: 9:49 Arrival Date: 11/28/2019 Arrival Time: 0:00 Admit Source: Other Insurance Payor: Medicare [facility] #: [id number] Height (in.): 71 BSA: 2.19 (m2) Height (cm.): 180.34 BMI: 30.47 (kg/m2) Weight (lbs.): 218.46 Weight (kg.): 99.09 Lab Results Lab Result Date: 11/28/2019 Lab Result Time: 0:00 Biochemistry Name Units Result Min Max BUN mg/dl 17 --(---*)-- 7 18 Creatinine mg/dl 0.9 --(-*--)-- 0.6 1.3 eGFR ml/min 64.81946 *-(----)-- 90 120 NONAFRICAN CBC Name Units Result Min Max Hematocrit % 40.6 -*(----)-- 42 54 Hemoglobin g/dl 14.4 --(*---)-- 13.5 17.5 Procedure Procedure Types Cath Procedure Diagnostic Procedure Cardioversion External Procedure Description Procedure Date Procedure Date: 11/28/2019 Procedure Start Time: 12:20 Procedure End Time: 12:22 Procedure Staff Name Function Navdeep Vazquez MD Performing Physician Pj Trejo RT Monitor Mamta Chavira RN Nurse Arabella Murphy CRNA Additional personnel Wendy Manning RT Monitor Procedure Data Cath Procedure Estimated blood loss: 0 ml Procedure Complications No complications Procedure Medications Medication Administration Route Dosage Oxygen etCO2 Nasal cannula 2 l/min Refer to Anesthesia Notes for Sedation Medications Hemodynamics Rest BSA: 2.19 (m2) HGB: 14.4 (g/dl) O2 Consumption: Estimated: 202.48 (ml/min) O2 Consumption indexed: Estimated:92.46 (ml/min/m) Heart Rate: 76 (bpm) Snapshots Pre Cath Intra NCS Post Cath Vital Signs Time Heart Resp SPO2 etCO2 NIBP (mmHg) Rhythm Pain Sedation Rate (ipm) (%) (mmHg) Status Level (bpm) 12:10:17 76 12 99 0 180/101(154) NSR 0 (11) 10(A) , No pain 12:15:37 79 17 99 20.3 191/95(114) NSR 0 (11) 10(A) , No pain 12:20:05 78 7 99 0 169/84(113) NSR 0 (11) 10(A) , No pain Medications Time Medication Route Dose Verified Delivered Reason Notes Effective ness by by 12:17:02 Oxygen etCO2 2 Navdeep Oleary used for Nasal l/min George Chavira RN procedure cannula 12:17:09 Refer to Navdeep Oleary Anesthesia George Chavira RN Notes for Sedation Medications Procedure Log Time Note 11:58:21 Informed consent obtained and on chart 11:58:58 Pj SHEFFIELD(R) sent for patient. Start room use. 12:02:00 Time tracking: Regular hours (M-F 7:00 - 5:00) 12:02:06 Plan of Care:Hemodynamics will remain stable., Cardiac rhythm will remain stable., Comfort level will be maintained., Respiratory function will remain adequate., Patient/ family verbilizes understanding of procedure., Procedure tolerated without complication., Recovers from procedure without complications.. 12:02:14 Patient received from Pre/Post Procedure Room to CCL 2 Alert and oriented. Tansferred to table in Supine position. 12:03:17 Warm blankets applied, and cesario hugger turned on for patient comfort. 12:03:18 Correct patient and procedure confirmed by team. 12:03:52 H&P Date Dictated: 11/28/2019 Within 30 days and on chart.. 12:03:54 Pre-procedure instructions explained to patient. 12:03:54 Pre-op teaching completed and patient verbalized understanding. 12:03:57 Family in waiting room. 12:04:17 Patient allergic to Other allergyIodine, Pcn, Sulfa 12:04:20 Is the patient allergic to Iodine/contrast media? No. 12:05:20 Lab Result : BUN 17 mg/dl 12:05:20 Lab Result : Creatinine 0.9 mg/dl 12:05:20 Lab Result : eGFR NONAFRICAN 64.76034 ml/min 12:05:20 Lab Result : Hemoglobin 14.4 g/dl 12:05:20 Lab Result : Hematocrit 40.6 % 12:05:26 Lab results completed and on chart. 12:05:31 Stress Test: no; N/A ? 12:05:35 Alarms reviewed by R. N. 12:05:39 Sharps counted by scrub and verified by R.N. 12:05:47 Patient pain scale 0/10 ?. 12:07:16 Snore? No 12:07:19 Sleep apnea? No 12:07:20 Deviated septum? No 12:07:22 Opens mouth fully? Yes 12:07:23 Sticks out tongue? Yes 12:07:26 Airway obstruction? No ? 12:07:29 Dentures? No ? 12:07:38 Is patient on blood thinner?Yes 12:07:48 ACC The patient was administered the following blood thiners within the last 24 hours: Coumadin 12:07:54 ECG and BP/O2 sat monitors applied to patient. 12:08:17 IV patent on arrival in left antecubital with 0.9% NaCl at KVO. 12:08:27 Previous problem with sedation/anesthesia? No ? 12:08:50 Patient diabetic? No. 12:08:54 Patient NPO since Midnight. 12:09:04 Vital chart was started 12:09:05 Full Disclosure recording started 12:09:13 Arrival Date: 11/28/2019 12:00:00 AM 12::14 Admit Source: Other 12::22 Insurance Payor : Medicare 12:09:42 Patient Height : 71 inches 12:09:47 Patient Weight : 218.46 lbs 12:10:14 Baseline sample Acquired. 12:10:19 Rhythm: atrial fibrillation 12:14:55 Arabella Murphy CRNA present and monitoring patient for TIVA. 12:17:02 Oxygen 2 l/min etCO2 Nasal cannula was administered by Mamta Chavira RN; used for procedure; Verbal order read back and verified. 12:17:09 Refer to Anesthesia Notes for Sedation Medications was administered by Mamta Chavira RN; ; Verbal order read back and verified. 12:17:56 --------ALL STOP TIME OUT------ 12:18:02 Final Timeout: patient, procedure, and site verified with staff and physician. All members of the team are in agreement. 12:18:14 Fire Safety Assessment: A--An alcohol-based skin anteseptic being used preoperatively., C--Open oxygen or nitrous oxide is being used., D--An ESU, laser, or fiber-optic light is being used. 12:18:18 Physical assessment completed. ASA score P 2 - A patient with mild systemic disease as per Navdeep Vazquez MD. 12:18:25 Sedation plan: TIVA Medication:Propofol 12:20:16 Procedure started. 12:20:22 Quick combo pads placed on patients chest and back. 12:20:26 Defibrillator synced and charged to 275 Joules. 12:20:27 Shock delivered. 12:20:46 Patient cardioverted to sinus rhythm . 12:21:04 Procedure ended.(Physican Out) 12:21:23 Post-procedure physical assessment completed. ASA score P 3 - A patient with severe systemic disease as per Navdeep Vazquez MD. 12:21:26 Post procedure rhythm: sinus rhythm 12:21:29 Estimated blood loss: 0 ml 12:21:33 Post procedure instruction explained to patient.Patient verbalizes understanding. 12::42 Procedure and supply charges have been captured, reviewed, submitted and are correct. 12:22:09 Procedure Complication : No complications 12:22:11 Vital chart was stopped 12:22:17 Report given to Pre/Post Procedure Room. 12:22:24 Patient transfered to Pre/Post Procedure Room with Stretcher. 12::26 Procedure ended. 12:: Full Disclosure recording stopped 12:22:53 End room use (Document Last) 12:23:23 End room use (Document Last) 12:24:02 End room use (Document Last) Signature Audit [place] Stage Time Signature Unsigned Intra-Procedure 11/28/2019 Wendy Manning 12:23:23 PM RT(R) Intra-Procedure 11/28/2019 Mamta Chavira RN 12:24:02 PM Intra-Procedure 11/28/2019 Navdeep Vazquez 12:26:00 PM Signatures Performing Physician : Signature : Navdeep Vazquez MD Date : Time : Monitor : Pj Trejo RT Signature : Date : Time : Nurse : Mamta Chavira RN Signature : Date : Time : Monitor : Wendy Manning Signature : RT Date : Time : [facility] [address] [place] [address]
--- NOTE | ~2019-11-28 | OP ---
PATIENT NAME: SHOBHA FONG MEDICAL RECORD: [id number] :42 LOCATION:D.CAT ADMISSION DATE: SURGEON: DESIRE LOUIS MD DATE OF OPERATION: 11/28/2019 PROCEDURE: DC cardioversion. INDICATION: Atrial fibrillation. PROCEDURE IN DETAIL: IV conscious sedation was per anesthesia. Continuous heart rate, O2 saturation, blood pressure monitoring all undertaken, all of which remains stable. She received 1 shock at 275 joules restoring sinus rhythm. OVERALL IMPRESSION: Successful direct current cardioversion from atrial fibrillation in normal sinus rhythm. TRANSINT:[id number] Voice Confirmation ID: [id number] DOCUMENT ID: [id number] DESIRE LOUIS MD CC: [id number] DICTATION DATE: 11/28/19 122 BAND SAWING MACHINE OPERATOR: 11/28/197 [place] [id number] [place] [id number]
[2019-11-28 10:27] VITALS: BP 141/72; Ht 180.3 cm; Wt 99.1 kg
[2019-11-28 10:41] LABS: BASOPHILS 0 % (0-2); EOSINOPHILS 2.3 % (0-7); HEMATOCRIT 40.6 % (36.0-48.0); HEMOGLOBIN 14.4 g/dL (12-16); IMMATURE GRANULOCYTES 0.3 % (0-5); LYMPHOCYTES 23.9 % (15-50); MCH 33.2 pg (26.0-34.0); MCHC 35.5 g/dL (31.0-37.0); MCV 93.5 fL (80.0-100.0); MEAN PLATELET VOLUME 9.5 fL (7.4-10.4); MONOCYTES 6.6 % (2-11); NEUTROPHILS 66.9 % (40-80); PLATELET COUNT 209 10x3/uL (130-400); RBC 4.34 10x6/uL (4.00-5.40); RDW 12.8 % (11.5-14.5); WBC 3.5 10x3/uL (4.8-10.8)
[2019-11-28 10:51] LABS: ANION GAP 10.8 mmol/L (8-16); CALCIUM 10.1 mg/dL (8.5-10.1); CARBON DIOXIDE 27.8 mmol/L (21.0-32.0); CREATININE - SERUM 0.9 mg/dL (0.6-1.3); POTASSIUM - SERUM 3.6 mmol/L (3.5-5.1)
[2019-11-28 10:52] LABS: INR 2.74 (0.85-1.17); PROTIME 28.3 SECONDS (11.6-15.0)
--- NOTE | 2019-11-28 12:35 | NUR ---
REC TO ROOM VIA STRETCHER FROM LAB. MONITORING INITIATED.
--- NOTE | 2019-11-28 12:40 | NUR ---
FAMILY AT BEDSIDE. DR LOUIS IN TO SPEAK W PT/FAMILY.
--- NOTE | 2019-11-28 12:55 | NUR ---
VISITING W FAMILY, NO COMPLAINTS. HR SB 49, BP 169/61, RR 13, SAT 99% RA.
--- NOTE | 2019-11-28 13:10 | NUR ---
NO COMPLAINTS. SB, 49. CONT MONITORING.
--- NOTE | 2019-11-28 13:25 | NUR ---
NO COMPLAINTS. HR 48, SB.
--- NOTE | 2019-11-28 13:40 | NUR ---
DC INSTRUCTIONS REVIEWED. PT HOME VIA WHEELCHAIR TO PRIVATE CAR W FRIEND.
--- NOTE | 2019-11-28 13:40 | NUR ---
IV DC, TIP INTACT. MONITORING DC. DRESSING W HELP OF FRIEND.
== END | disposition home or self-care (01) ==
LOC: D.CATH 09:49
PROVIDERS: ATTEND Internal Medicine Interventional Cardiology
DX: I25.10 Atherosclerotic heart disease of native coronary artery without angina pectoris (principal); I48.91 Unspecified atrial fibrillation; I25.119 Atherosclerotic heart disease of native coronary artery with unspecified angina pectoris; R06.00 Dyspnea, unspecified; I35.0 Nonrheumatic aortic (valve) stenosis

== ENCOUNTER 2021-02-06 11:10 | Day surgery (SDC) | payer MEDICARE, OTHER ==
[2021-02-03 12:43] LABS: CARBON DIOXIDE 28.4 mmol/L (21.0-32.0); POTASSIUM - SERUM 4.4 mmol/L (3.5-5.1)
[2021-02-03 12:46] LABS: APTT 47.8 SECONDS (22.8-39.4); INR 2.32 (0.85-1.17); PROTIME 23.7 SECONDS (11.6-15.0)
[2021-02-03 12:51] LABS: BASOPHILS 0.3 % (0-2); EOSINOPHILS 1.3 % (0-7); HEMATOCRIT 41.5 % (36.0-48.0); HEMOGLOBIN 13.8 g/dL (12-16); IMMATURE GRANULOCYTES 0.3 % (0-5); LYMPHOCYTE ABS# 0.92 10x3/uL (1.18-3.74); LYMPHOCYTES 23.1 % (15-50); MCH 30.7 pg (26.0-34.0); MCHC 33.3 g/dL (31.0-37.0); MCV 92.4 fL (80.0-100.0); MEAN PLATELET VOLUME 9.5 fL (7.4-10.4); NEUTROPHIL ABS# 2.79 10x3/uL (1.56-6.13); PLATELET COUNT 209 10x3/uL (130-400); RBC 4.49 10x6/uL (4.00-5.40)
[~2021-02-06] VITALS: Ht 177.8 cm; Wt 94.8 kg
--- NOTE | ~2021-02-06 | OP ---
PATIENT NAME: SHOBHA FONG MEDICAL RECORD: [id number] :42 [facility] DATE: SURGEON: DOMINGO MARTINEZ MD DATE OF OPERATION: 02/06/2021 PREOPERATIVE DIAGNOSIS: Left hip wound, status post total hip arthroplasty. POSTOPERATIVE DIAGNOSIS: Left hip wound, status post total hip arthroplasty. PROCEDURE PERFORMED: 1. Incision and debridement of left hip wound (skin and subcutaneous tissue). 2. Closure of left hip wound (2.5 cm). INDICATIONS: Ms. Fong is a 80-year-old female who underwent left total hip arthroplasty on 10/06/2020 for femoral neck fracture. She has developed a small wound along the distal portion of her incision that we have been monitoring and performing dressing changes, but the wound remains open and she is now 4 months out from her procedure. She has elected to return to the operating room for formal I and D with wound closure. There does not appear to be any evidence of infection. Risks, benefits, and alternatives of surgery were discussed with the patient and consent was obtained. DESCRIPTION OF PROCEDURE: The patient was met in the holding area where her identity and confirmation of procedure was performed. Left lower extremity was marked. She was taken to the operating room where she was placed supine on the operating table. Anesthesia was administered. Left hip was then prepped and draped in a sterile fashion. The patient received preoperative antibiotics. A timeout was performed prior to initiating the case. On initiation of the case, the wound was elliptically excised full thickness through the skin and subcutaneous layers and then transected at its base. The piece of tissue was removed in its entirety and we were able to completely remove the wound and its base. Probe was used once the wound was removed and it was contained within the soft tissues. The soft tissues remaining appeared clean without any evidence of infection. The wound was irrigated thoroughly with saline. 2-0 PDS was used for deep closure. The skin was then closed with 3-0 nylon in a vertical mattress fashion. Total length of closure equals 2.5 cm. Sterile dressing was placed. The patient was turned back over to anesthesia where she was awakened and taken to the recovery room in stable condition. POSTOPERATIVE PLAN: The patient is going to return home with her family today. She needs to keep the incision clean and dry. We will plan to see her back in clinic in 2 weeks. COMPLICATIONS: None. ESTIMATED BLOOD LOSS: 5 mL. ANESTHESIA: Conscious sedation. TRANSINT:[id number] Voice Confirmation ID: [id number] DOCUMENT ID: [id number] OPERATIVE REPORT [id number] SHOBHA FONG BRENT M MD CC: [id number] DICTATION DATE: 02/06/21 162 PLUNKET NURSE: 02/06/212102 [facility] 02/06/21 [place] [id number]
[~2021-02-06 11:10] MED LIST changes: +ALDACTONE25 MG PO; +CALCIUM 600 +1 EAC3 PO; +COZAAR100 MG PO; +CYANOCOBAL1000 MCG/4 SC; +FOLIC ACID1 MG PO; +MAG-OX 400 MG400 MG PO; +OMEPRAZOLE20 M1 PO; +TIKOSYN250 MCG PO; +VITAMIN D-32000 UNIT PO; +XARELTO20 MG PO; +ZOLOFT50 MG PO
[2021-02-06 13:18] VITALS: BP 141/69; Ht 177.8 cm; Wt 94.8 kg
[2021-02-06 13:25] LABS: INR 1.05 (0.85-1.17); PROTIME 12.7 SECONDS (11.6-15.0)
--- NOTE | 2021-02-06 16:48 | NUR ---
1610 TO ROOM PT RECIEVED TIVA ANEATHESIA. VS STABLE DRESSING CDI LEFT LEG. NO RX IN CHART. DR MARTINEZ NOTIFIED. 1620 MEDICATED FOR PAIN 05/08.
== END 2021-02-06 16:52 | disposition home or self-care (01) ==
LOC: D.OPS 11:10
PROVIDERS: Anesthesiology; ATTEND Orthopaedic Surgery
DX: T81.30XD Disruption of wound, unspecified, subsequent encounter (principal); M25.552 Pain in left hip; S72.002D Fracture of unspecified part of neck of left femur, subsequent encounter for closed fracture with routine healing; Z96.642 Presence of left artificial hip joint; I48.91 Unspecified atrial fibrillation

== ENCOUNTER → 2021-05-29 10:43 | Outpatient (CLI) | payer MEDICARE, OTHER ==
[2021-05-29 11:29] LABS: BASOPHILS 0.4 % (0-2); HEMOGLOBIN 12.8 g/dL (12-16); LYMPHOCYTES 16.4 % (15-50); MCH 32.5 pg (26.0-34.0); MCHC 34.7 g/dL (31.0-37.0); MCV 93.7 fL (80.0-100.0); MEAN PLATELET VOLUME 7.4 fL (7.4-10.4); NEUTROPHILS 77.2 % (40-80); PLATELET COUNT 246 10x3/uL (130-400); RBC 3.95 10x6/uL (4.00-5.40); RDW 14.2 % (11.5-14.5); WBC 4.7 10x3/uL (4.8-10.8)
[2021-05-29 11:32] LABS: ANION GAP 11.8 mmol/L (8-16); CALCIUM 10.6 mg/dL (8.5-10.1); CARBON DIOXIDE 24.8 mmol/L (21.0-32.0); CREATININE - SERUM 1.2 mg/dL (0.6-1.3); POTASSIUM - SERUM 4.6 mmol/L (3.5-5.1)
== END | disposition home or self-care (01) ==
LOC: D.LAB 10:43
PROVIDERS: ATTEND Internal Medicine Clinical Cardiac Electrophysiology
DX: I48.91 Unspecified atrial fibrillation (principal)